=== PATIENT | female | born 1940 | race Caucasian/White ===

== ENCOUNTER → 2024-01-23 | Outpatient (CLI) | payer OTHER, SELFPAY ==
[2024-01-23 15:47] LABS: Glucose Estimated Average 160 mg/dL (80-131); Hemoglobin A1C 7.2 % Hgb (4.8-6.0)
[2024-01-23 16:00] LABS: Anion Gap 8 (7-16); BUN/Creatinine Ratio 22 Ratio (12-20); Blood Urea Nitrogen 29 mg/dL (9-23); Calcium 9.9 mg/dL (8.3-10.6); Carbon Dioxide 28.2 mMol/L (20.0-31.0); Chloride 101 mMol/L (98-107); Creatinine (Component) 1.3 mg/dL (0.6-1.3); Glucose 134 mg/dL (74-106); Osmolality,Calculated 281 (275-295); Potassium 5.5 mMol/L (3.4-5.1); Sodium 137 mMol/L (136-145); eGFR 41 See Note
== END | disposition home or self-care (01) ==
PROVIDERS: PCP Family Medicine; Referring Provider Nurse Practitioner Family; Visit Provider Nurse Practitioner Family
DX: E11.22 Type 2 diabetes mellitus with diabetic chronic kidney disease (principal); N18.30 Chronic kidney disease, stage 3 unspecified
CPT/HCPCS: 36415; 80048; 83036

== ENCOUNTER → 2024-06-17 | Outpatient (CLI) | payer OTHER, SELFPAY ==
[2024-06-17 11:09] LABS: Collection Type, Urine Clean Catch
[2024-06-17 11:44] LABS: Basophils # (Auto) 0.1 Thou/mm3 (0.0-0.2); Basophils % (Auto) 1 % (0-2.5); Eosinophils # (Auto) 0.4 Thou/mm3 (0.0-0.5); Eosinophils % (Auto) 5 % (0-10); Hematocrit 39.8 % (36.0-46.0); Hemoglobin 13.7 g/dL (12.0-16.0); Immature Granulocytes % (Auto) 0 % (0-0); Immature Granulocytes Auto 0.02 Thou/mm3 (0.00-0.00); Lymphocytes # (Auto) 2.2 Thou/mm3 (1.0-4.8); Lymphocytes % (Auto) 27 % (10-50); Mean Corpuscular HGB Conc 34.4 g/dl (31.0-37.0); Mean Corpuscular Hemoglobin 32.9 pg (25.0-35.0); Mean Corpuscular Volume 96 fL (80-100); Monocytes # (Auto) 0.6 Thou/mm3 (0.0-0.8); Monocytes % (Auto) 7 % (0-12); Neutrophils # (Auto) 4.8 Thou/mm3 (1.8-7.7); Neutrophils % (Auto) 60 % (37-80); Nucleated Red Blood Cell % 0 /100 WBC (0); Platelet Count 271 Thou/mm3 (140-440); RDW Standard Deviation 44.8 fL (36.4-46.3); Red Blood Count 4.16 Miln/mm3 (4.00-5.20)
[2024-06-17 12:19] LABS: Alanine Aminotransferase 13 U/L (10-49); Albumin, Serum 4.3 gm/dL (3.4-4.8); Albumin/Globulin Ratio 1.7 (1.2-2.2); Alkaline Phosphatase 82 U/L (46-116); Anion Gap 10 (7-16); Aspartate Amino Transferase 20 U/L (0-34); BUN/Creatinine Ratio 23 Ratio (12-20); Bilirubin,Total 0.6 mg/dL (0.3-1.2); Blood Urea Nitrogen 32 mg/dL (9-23); Calcium 9.2 mg/dL (8.3-10.6); Calcium (Corrected) 9.2 mg/dL (8.5-10.1); Carbon Dioxide 25.7 mMol/L (20.0-31.0); Cardiac Risk Estimate 5.8 RATIO (3.7-5.6); Chloride 102 mMol/L (98-107); Cholesterol 230 mg/dL (132-200); Creatinine (Component) 1.4 mg/dL (0.6-1.3); Globulin 2.6 gm/dL (2.3-3.5); Glucose 200 mg/dL (74-106); HDL Cholesterol 40 mg/dL (40-60); LDL Cholesterol,Calculated 134 mg/dL (0-130); Osmolality,Calculated 288 (275-295); Potassium 5.6 mMol/L (3.4-5.1); Sodium 138 mMol/L (136-145); Thyroid Stimulating Hormone 5.73 uIU/mL (0.55-4.78); Total Protein 6.9 gm/dL (5.7-8.2); Triglycerides 281 mg/dL (30-150); Uric Acid 8.5 mg/dL (3.1-7.8); eGFR 37 See Note
[2024-06-17 12:21] LABS: HIV (1&2) Antibody Rapid Non-Reactive
[2024-06-17 12:32] LABS: Syphilis Nonreactive (Nonreactive)
[2024-06-17 12:44] LABS: Glucose Estimated Average 157 mg/dL (80-131); Hemoglobin A1C 7.1 % Hgb (4.8-6.0)
[2024-06-17 12:57] LABS: Hepatitis A Antibody IgM Non Reactive (Non React); Hepatitis B Core Antibody IgM Non Reactive (Non React); Hepatitis B Surface Antigen Non Reactive (Non React); Hepatitis C Antibody Non Reactive (Non React)
[2024-06-17 13:35] LABS: Bacteria,Urine 2+; Bilirubin,Urine Negative (Negative); Blood,Urine 2+ (Negative); Color,Urine Yellow (Lt Yel-Yel); Creatinine MALB Rnd Ur 164 mg/dL (30-125); Glucose, Urine Negative (Negative); Granular Casts,Urine 1 /hpf (0-1); Ketones,Urine Negative (Negative); Leukocyte Esterase,Urine Positive (Negative); Microalbumin Creat Ratio 60 mg/gCrea (<30); Microalbumin, Random Urine 98 mg/L (0-300); Nitrite,Urine Negative (Negative); PH,Urine 5.5 (5.0-7.0); Protein,Urine 1+ (Neg - Trace); RBC,Urine 22 /hpf (0-3); Specific Gravity,Urine 1.023 (1.001-1.035); Squamous Epithelial Cell,Urine 2 /hpf (0-5); Transitional Epi Cells,Urine 3 /hpf (0-5); Urobilinogen,Urine Negative mg/dL (0.0-1.0); WBC,Urine 2196 /hpf (0-5)
[2024-06-17 14:00] LABS: Clarity,Urine Turbid (Clear/Hazy); Culture Indicated,Urine Yes
== END | disposition home or self-care (01) ==
LOC: COPL 10:09
PROVIDERS: PCP Family Medicine; Referring Provider Nurse Practitioner Family; Visit Provider Nurse Practitioner Family
DX: Z00.00 Encounter for general adult medical examination without abnormal findings (principal); E11.65 Type 2 diabetes mellitus with hyperglycemia; M10.00 Idiopathic gout, unspecified site; I10 Essential (primary) hypertension; E03.9 Hypothyroidism, unspecified
CPT/HCPCS: 36415; 80053; 80061; 80074; 81001; 82043; 82570; 83036; 84443; 84550; 85025; 86703; 86780; 87077; 87086; 87186; 87491; 87591; 87661

== ENCOUNTER → 2024-06-18 | Outpatient (CLI) | payer OTHER, SELFPAY ==
[2024-06-18 14:14] LABS: Potassium 4.9 mMol/L (3.4-5.1)
[2024-06-18 16:43] LABS: Chlamydia trachomatis PCR Negative (Not Detect); Neisseria Gonorrhoeae DNA PCR Negative (Not Detect); Trichomonas Negative (Negative)
== END | disposition home or self-care (01) ==
LOC: COPL 13:35
PROVIDERS: PCP Family Medicine; Referring Provider Nurse Practitioner Family; Visit Provider Nurse Practitioner Family
DX: E87.5 Hyperkalemia (principal); Z11.3 Encounter for screening for infections with a predominantly sexual mode of transmission
CPT/HCPCS: 36415; 84132; 87491; 87591; 87661

== ENCOUNTER → 2024-07-10 | Outpatient (CLI) | payer OTHER, SELFPAY ==
[2024-07-10 16:26] LABS: Basophils # (Auto) 0.1 Thou/mm3 (0.0-0.2); Basophils % (Auto) 1 % (0-2.5); Eosinophils # (Auto) 0.3 Thou/mm3 (0.0-0.5); Eosinophils % (Auto) 3 % (0-10); Hematocrit 38.7 % (36.0-46.0); Hemoglobin 14.4 g/dL (12.0-16.0); Immature Granulocytes % (Auto) 1 % (0-0); Immature Granulocytes Auto 0.06 Thou/mm3 (0.00-0.00); Lymphocytes # (Auto) 2.9 Thou/mm3 (1.0-4.8); Lymphocytes % (Auto) 28 % (10-50); Mean Corpuscular HGB Conc 37.2 g/dl (31.0-37.0); Mean Corpuscular Hemoglobin 33.3 pg (25.0-35.0); Mean Corpuscular Volume 89 fL (80-100); Monocytes # (Auto) 0.6 Thou/mm3 (0.0-0.8); Monocytes % (Auto) 6 % (0-12); Neutrophils # (Auto) 6.5 Thou/mm3 (1.8-7.7); Neutrophils % (Auto) 62 % (37-80); Nucleated Red Blood Cell % 0 /100 WBC (0); Platelet Count 437 Thou/mm3 (140-440); RDW Standard Deviation 41.1 fL (36.4-46.3); Red Blood Count 4.33 Miln/mm3 (4.00-5.20); White Blood Count 10.4 Thou/mm3 (3.6-11.0)
[2024-07-10 16:38] LABS: Alanine Aminotransferase 15 U/L (10-49); Albumin, Serum 4.4 gm/dL (3.4-4.8); Albumin/Globulin Ratio 1.6 (1.2-2.2); Alkaline Phosphatase 62 U/L (46-116); Anion Gap 16 (7-16); Aspartate Amino Transferase 26 U/L (0-34); BUN/Creatinine Ratio 13 Ratio (12-20); Bilirubin,Total 0.6 mg/dL (0.3-1.2); Blood Urea Nitrogen 21 mg/dL (9-23); Calcium 9.3 mg/dL (8.3-10.6); Calcium (Corrected) 9.3 mg/dL (8.5-10.1); Carbon Dioxide 21.5 mMol/L (20.0-31.0); Chloride 99 mMol/L (98-107); Creatinine (Component) 1.6 mg/dL (0.6-1.3); Globulin 2.8 gm/dL (2.3-3.5); Glucose 151 mg/dL (74-106); Osmolality,Calculated 277 (275-295); Potassium 4.4 mMol/L (3.4-5.1); Sodium 136 mMol/L (136-145); Total Protein 7.2 gm/dL (5.7-8.2); eGFR 32 See Note
== END | disposition home or self-care (01) ==
LOC: COPL 15:46
PROVIDERS: PCP Family Medicine; Referring Provider Nurse Practitioner Family; Visit Provider Nurse Practitioner Family
DX: R19.7 Diarrhea, unspecified (principal)
CPT/HCPCS: 36415; 80053; 85025

== ENCOUNTER → 2024-07-15 | Outpatient (CLI) | payer OTHER, SELFPAY ==
[2024-07-16 11:11] LABS: Clostridium Difficile PCR Negative (Negative)
== END | disposition home or self-care (01) ==
LOC: SLDO 15:41
PROVIDERS: PCP Nurse Practitioner Family; Referring Provider Nurse Practitioner Family; Visit Provider Nurse Practitioner Family
DX: R19.7 Diarrhea, unspecified (principal)
CPT/HCPCS: 87015; 87045; 87046; 87177; 87209; 87493; 87899

== ENCOUNTER → 2024-08-21 | Outpatient (CLI) | payer OTHER, SELFPAY ==
[2024-08-21 12:51] LABS: Anion Gap 10 (7-16); BUN/Creatinine Ratio 12 Ratio (12-20); Blood Urea Nitrogen 14 mg/dL (9-23); Calcium 9.3 mg/dL (8.3-10.6); Carbon Dioxide 25.2 mMol/L (20.0-31.0); Chloride 105 mMol/L (98-107); Creatinine (Component) 1.2 mg/dL (0.6-1.3); Glucose 129 mg/dL (74-106); Osmolality,Calculated 281 (275-295); Potassium 4.4 mMol/L (3.4-5.1); Sodium 140 mMol/L (136-145); Thyroid Stimulating Hormone 5.43 uIU/mL (0.55-4.78); Uric Acid 7.3 mg/dL (3.1-7.8); eGFR 45 See Note
== END | disposition home or self-care (01) ==
LOC: COPL 11:33
PROVIDERS: PCP Family Medicine; Referring Provider Nurse Practitioner Family; Visit Provider Nurse Practitioner Family
DX: E03.9 Hypothyroidism, unspecified (principal); M10.00 Idiopathic gout, unspecified site; N18.30 Chronic kidney disease, stage 3 unspecified
CPT/HCPCS: 36415; 80048; 84443; 84550

== ENCOUNTER → 2024-10-22 | Outpatient (CLI) | payer OTHER, SELFPAY ==
[2024-10-22 15:19] LABS: Glucose Estimated Average 131 mg/dL (80-131); Hemoglobin A1C 6.2 % Hgb (4.8-6.0)
[2024-10-22 15:21] LABS: Anion Gap 10 (7-16); BUN/Creatinine Ratio 14 Ratio (12-20); Blood Urea Nitrogen 17 mg/dL (9-23); Calcium 9.6 mg/dL (8.3-10.6); Carbon Dioxide 27.9 mMol/L (20.0-31.0); Chloride 103 mMol/L (98-107); Creatinine (Component) 1.2 mg/dL (0.6-1.3); Free T4 (Free Thyroxine) 1.06 ng/dL (0.89-1.76); Glucose 124 mg/dL (74-106); Osmolality,Calculated 283 (275-295); Potassium 4.6 mMol/L (3.4-5.1); Sodium 141 mMol/L (136-145); Thyroid Stimulating Hormone 7.11 uIU/mL (0.55-4.78); eGFR 45 See Note
== END | disposition home or self-care (01) ==
LOC: COPL 14:07
PROVIDERS: PCP Nurse Practitioner Family; Referring Provider Nurse Practitioner Family; Visit Provider Nurse Practitioner Family
DX: E03.9 Hypothyroidism, unspecified (principal); E11.22 Type 2 diabetes mellitus with diabetic chronic kidney disease; N18.30 Chronic kidney disease, stage 3 unspecified; E11.65 Type 2 diabetes mellitus with hyperglycemia
CPT/HCPCS: 36415; 80048; 83036; 84439; 84443

== ENCOUNTER → 2025-02-05 | Outpatient (CLI) | payer OTHER, SELFPAY ==
[2025-02-05 13:37] LABS: Free T4 (Free Thyroxine) 1.15 ng/dL (0.89-1.76); Thyroid Stimulating Hormone 1.96 uIU/mL (0.55-4.78)
== END | disposition home or self-care (01) ==
LOC: COPL 12:47
PROVIDERS: PCP Family Medicine; Referring Provider Nurse Practitioner Family; Visit Provider Nurse Practitioner Family
DX: E03.9 Hypothyroidism, unspecified (principal)
CPT/HCPCS: 36415; 84439; 84443